=== PATIENT | male | born 1975 | race Hispanic/Latino ===

== ENCOUNTER 2019-01-06 13:56 | Outpatient (CLI) | payer OTHER ==
--- NOTE | 2019-01-06 15:19 | RAD ---
RADIOGRAPH CERVICAL SPINE 4 VIEWS: DATE: 01/06/2019 HISTORY: 43-year-old male with cervicalgia and cervical radiculopathy. COMPARISON: None TECHNIQUE: Lateral views in flexion, neutral, and extension. Swimmer's view. (No AP or open mouth view) FINDINGS: Alignment is normal. Vertebral body heights are maintained. At C5-6 and C6-7, there is minimal disc s pace narrowing and small endplate marginal osteophytes that encroach upon the anterior aspect of the spinal canal. There is no instability between flexion and extension. The rest of the discs spaces are maintained without osteophytes. No prevertebral soft tissue swelling. IMPRESSION: 1) mild to moderate degenerative disc disease at C5-6 and C6-7. 2) the rest of the levels are normal.
== END 2019-01-06 13:57 | disposition home or self-care (01) ==
LOC: TBSIIMAG 13:56
PROVIDERS: ATTEND Neurological Surgery
DX: M54.2 Cervicalgia (principal); M50.322 Other cervical disc degeneration at C5-C6 level
CPT/HCPCS: 72040

== ENCOUNTER 2019-02-24 05:58 | Day surgery (SDC) | payer OTHER ==
[2019-02-23 08:36] VITALS: BMI 27.2
--- NOTE | 2019-02-23 12:58 | HP ---
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 He was found on examination to have a C7 radiculopathy and his MRI scan showed the causative agent. This is a C6-C7 intervertebral disk herniation causing foraminal stenosis. Because of the failure of conservative management to alleviate his symptoms, we offered him a surgical intervention and he is here to proceed with that. PAST MEDICAL HISTORY: chronic pain, headache, and hypertension. PAST SURGICAL HISTORY: None. MEDICATIONS: 1. Montelukast sodium. 2. Fexofenadine. 3. EpiPen p.r.n. 4. Azelastine. 5. Losartan/hydrochlorothiazide. 6. Gemfibrozil. 7. Tizanidine p.r.n. 8. Tylenol No. 3 p.r.n. ALLERGIES: NO KNOWN DRUG ALLERGIES. SOCIAL HISTORY: Mr. Chopra is a member of [employer]. He is a former smoker. He is using no cigarettes currently. Does not use alcohol or illicit drugs. FAMILY HISTORY: Both of his parents are alive and healthy. PHYSICAL EXAMINATION: VITAL SIGNS: The patient is 5 feet 10 inches tall. He weighs 190 pounds. NEUROLOGIC: The patient is awake and alert. There are no cognitive deficits. Speech is fluent and without dysphasia. Cranial nerves: Normal. Motor examination: There is a weakness in the right triceps compared to the left as well as the right finger extensors. Sensory examination: There is decreased sensation in the C7 distribution on the right hand. There is a Tinel's at the elbow. IMAGING STUDIES: MR imaging of the cervical spine shows disk protrusions at C5- C6 and C6-C7. The right-sided neural foramen is more compressed at C6-C7. Flexion and extension views, no overt instability. IMPRESSION: 1. Cervical intervertebral disk disease. 2. C7 radiculopathy, right side. ASSESSMENT AND PLAN: I had a long discussion with Mr. Chopra about the management of the cervical disk disease. He had facet injections, epidural steroids, and he has been through Physical Therapy. He has had multiple rounds of oral medications and his weakness is obvious when he tries to do bench pressing. All of these factors let me to offer surgical intervention. I discussed two or one level anterior cervical discectomy and fusion and prefers to treat the symptomatic lesion. Informed Consent: I did discuss the indications, risks, benefits, alternatives , and expected outcomes from surgery. The risks we discussed included, but were not limited to, bleeding, infection, CSF leak, damage to the trachea, esophagus or vocal cords, dysphagia, spinal cord injury, wheelchair dependence, ventilator dependence, stroke, major blood vessel injury and anesthesia complications including . The long-term risks included the need for future surgery or hardware failure. Mr. Chopra wants to proceed with ACDF. We will take him to the operating room. Job ID: [id number] MTDD
[2019-02-24] MEDS ORDERED: Thrombin 5000 UNITS/5 ML VIAL ONE (06:12)
[2019-02-24] MEDS ORDERED: Sodium Chloride 0.9% 10 ML ONE (06:12)
[2019-02-24] MEDS ORDERED: Scopolamine 1.5 mg/72 hour Patch ONE (06:34)
[2019-02-24] MEDS ORDERED: Midazolam HCl 2 mg/2 ml Vial ONE (06:34)
[2019-02-24] MEDS ORDERED: Fentanyl 100 MCG/2 ML VIAL ONE ×3 (06:38→10:35)
[2019-02-24 06:45] LABS: INR-International Normal Ratio 0.8; Prothrombin Time 11.4 SEC (12.0-14.7)
[2019-02-24 06:55] LABS: Anion Gap 15 mmol/L (10-20); BUN (Urea Nitrogen) 9 mg/dL (8.9-20.6); Calc. Creatinine Clearance 128 mL/min (70-130); Calcium 9.6 mg/dL (7.8-10.44); Carbon Dioxide 25 mmol/L (22-29); Chloride 102 mmol/L (98-107); Estimated GFR-MDRD 90; Glucose 105 mg/dL (70-105); Potassium 4.1 mmol/L (3.5-5.1); Sodium 138 mmol/L (136-145)
[2019-02-24 07:13] LABS: Mean Corpuscular HGB CONC 34.2 g/dL (32.0-36.0); Mean Corpuscular Hemoglobin 28.2 pg (27.0-31.0); Mean Corpuscular Volume 82.6 fL (78.0-98.0); Platelet Count 264 thou/uL (130-400); Red Blood Cell (RBC) Count 5.49 mill/uL (4.70-6.10); White Blood Cell (WBC) Count 8.7 thou/uL (4.8-10.8)
[2019-02-24 07:16] LABS: #Basophils 0.1 thou/uL (0.0-0.2); #Eosinphils 0.4 thou/uL (0.0-0.7); #Monocytes 0.7 thou/uL (0.11-0.59); #Neutrophils 5.5 thou/uL (1.40-6.50); %Basophils 0.8 % (0.0-1.0); %Eosinophils 5.1 % (0.0-10.0); %Lymphocytes 22.5 % (21.0-51.0); %Monocytes 7.7 % (0.0-10.0)
[2019-02-24 07:18] LABS: Hemoglobin 15.5 g/dL (14.0-18.0)
[2019-02-24] MEDS ORDERED: PROPOFOL 20 ML ONE (09:27)
[2019-02-24] MEDS ORDERED: Morphine 4 MG/ML VIAL SLOW IVP PRN (09:54)
[2019-02-24] MEDS ORDERED: Morphine 2 MG/ML SYRINGE SLOW IVP PRN (09:54)
[2019-02-24] MEDS ORDERED: diphenhydrAMINE 50 MG/ML VIAL IVP PRN (09:54)
[2019-02-24] MEDS ORDERED: Promethazine HCl 12.5 MG SUPP PR PRN (09:54)
[2019-02-24] MEDS ORDERED: Ondansetron PF 4 MG/2 ML Vial IVP PRN (09:54)
[2019-02-24] MEDS ORDERED: tiZANidine HCl 4 MG TAB PO PRN (09:54)
[2019-02-24] MEDS ORDERED: diphenhydrAMINE 25 MG CAP PO PRN (09:54)
[2019-02-24] MEDS ORDERED: Promethazine HCl 25 MG/ML VIAL IM PRN (09:54)
[2019-02-24] MEDS ORDERED: Promethazine 25 MG TAB PO PRN (09:54)
[2019-02-24] MEDS ORDERED: Acetaminophen/Codeine 30-300mg Tablet PO PRN ×2 (09:54)
[2019-02-24] MEDS ORDERED: Acetaminophen 650 MG Suppository PR PRN (09:54)
[2019-02-24] MEDS ORDERED: Acetaminophen 325 MG TAB PO PRN (09:54)
[2019-02-24] MEDS ORDERED: Sodium Chloride 0.9% 1,000 ML IV SCH (10:00)
[2019-02-24] MEDS ORDERED: Scopolamine 1.5 mg/72 hour Patch TD SCH (10:00)
[2019-02-24] MEDS ORDERED: Dexamethasone 20 MG/5 ML VIAL ONE (10:07)
[2019-02-24] MEDS ORDERED: Rocuronium Bromide 10 MG/ML (10ML VIAL) ONE (10:07)
[2019-02-24] MEDS ORDERED: Ondansetron PF 4 MG/2 ML Vial ONE (10:07)
[2019-02-24] MEDS ORDERED: Glycopyrrolate 0.2 MG/ML 5 ML SYRINGE ONE (10:07)
[2019-02-24] MEDS ORDERED: ePHEDrine/0.9% NaCl/PF SYRINGE 50 mg/10 ml ONE (10:07)
[2019-02-24] MEDS ORDERED: Metoclopramide HCl 10 MG/2 ML VIAL ONE (10:07)
[2019-02-24] MEDS ORDERED: PHENYLEPHRINE-NS 100 MCG/ML 10 ML SYRINGE ONE (10:07)
[2019-02-24] MEDS ORDERED: Lidocaine 1% PF 5 ML VIAL ONE (10:07)
[2019-02-24] MEDS ORDERED: PROPOFOL 200 MG/20 ML VIAL ONE (10:07)
--- NOTE | 2019-02-24 10:26 | OP ---
DATE OF PROCEDURE: 02/24/2019 PIPELINE OPERATOR: None. PREOPERATIVE INDICATION: Treat pain and prevent neurological deterioration. PREOPERATIVE DIAGNOSIS: Cervical intervertebral disk disease at C5-C6 and C6-C7 with cord compression at C5-C6 and C7 radiculopathy at C6-C7. POSTOPERATIVE DIAGNOSIS: Cervical intervertebral disk disease at C5-C6 and C6-C7 with cord compression at C5-C6 and C7 radiculopathy at C6-C7. PROCEDURES PERFORMED: Anterior cervical diskectomy, intervertebral arthrodesis and placement of intervertebral biomechanical device at C5-C6 and C6-C7. Anterior cervical plating C5, C6, and C7. Local morselized autograft, morselized allograft, operating microscope. PREOPERATIVE MEDICATION: Ancef 2 g IV. DRAIN NUMBER: Zero. DRAIN TYPE: None. DESCRIPTION OF PROCEDURE: The patient was brought to the operating room. General endotracheal anesthesia was induced. The patient was carefully positioned on the operating table with his head supported by a donut-shaped headrest. A lateral fluoro radiograph was used to plan our incision. The right side of the neck was sterilely prepped and draped. We opened our planned incision with a 10-blade knife and controlled bleeding with bipolar cautery. We dissected sharply to the platysma, then we cut this muscle in line with our incision. We continued our dissection medial to the sternocleidomastoid and lateral to the trachea and esophagus. We arrived at the prevertebral space. We placed a marker at C4-C5 and took a lateral fluoro radiograph. From there, we counted down to the C5, C6, and C7 segments of the cervical spine. The longus colli muscles were elevated off these vertebrae and a self-retaining retractor was placed beneath them. Distraction pins were placed at C5 and C7 and we distracted across both of the intervening interspaces. We incised the interspaces with a 15-blade knife and removed disk contents using curettes and rongeurs. The operating microscope was brought in the field. Under microscopic magnification and using microsurgical techniques, we removed the remainder of the intervertebral disk. We accessed the ventral epidural space with a micro curette, and then using Kerrison rongeurs we removed posterior osteophytes and posterior longitudinal ligament across the entire interspace at C5-C6 and C6-C7 until the dura was decompressed from one nerve root all the way to the other. With our decompression secured, we turned our attention to arthrodesis. Using curettes, we prepared the endplates for grafting. A bone rasp was used to measure the height of each interspace. We measured C6-7 to 7 mm and C5-6 to 6 mm. The appropriately-sized PEEK intervertebral grafts were brought into the field. Osteophytes removed during our decompression were cleaned of soft tissue attachments, morcellized, and added into demineralized bone matrix to form a fusion substrate. The substrate was placed into the center of the PEEK grafts and those were advanced into the respective interspaces under radiographic guidance to the appropriate depth. We removed our distraction pins and took the operating microscope out of the field. A 28-mm anterior cervical plate was brought into the field. We drilled airline pilot flight instructor holes through the plate into the vertebral bodies at C5, C6, and C7. We affixed the plate using 14 mm screws. Fixed angle screws were used at C7 and variable angle screws at C5 and C6. We engaged the locking mechanism over each of the 6 screws. AP and lateral fluoro radiographs confirmed adequate positioning of our instrumentation. We irrigated copiously with bacitracin irrigation. We closed the wound in anatomical layers and we applied a sterile dressing. Clean case, no contamination. Job ID: [id number]
[2019-02-24] MEDS ORDERED: Tamsulosin HCl 0.4 MG CAP ONE (10:57)
--- NOTE | 2019-02-24 11:12 | EKG ---
Test Reason : PREOP Blood Pressure : / mmHG Vent. Rate : 070 BPM Atrial Rate : 070 BPM P-R Int : 134 ms QRS Dur : 092 ms QT Int : 440 ms P-R-T Axes : -04 047 013 degrees QTc Int : 475 ms Normal sinus rhythm Normal ECG No previous ECGs available Confirmed by DR. Hailey ALVARADO ([id number]) on 02/24/2019 11:11:49 AM Referred By: SIM Confirmed By:DR. Hailey ALVARADO
[2019-02-24] MEDS ORDERED: Acetaminophen/Codeine 30-300mg Tablet ONE (13:45)
[2019-02-24] MEDS ORDERED: CEFAZOLIN 2 GM in Premix Bag 1 BAG IVPB SCH (14:00)
[2019-02-24] MEDS ORDERED: Montelukast Sodium 10 mg Tablet PO SCH (21:00)
[2019-02-25] MEDS ORDERED: Tamsulosin HCl 0.4 MG CAP PO SCH (06:00)
[2019-02-25] MEDS ORDERED: Loratadine 10 MG TAB PO SCH (09:00)
[2019-02-25] MEDS ORDERED: Gemfibrozil 600 MG TAB PO SCH (09:00)
== END 2019-02-24 14:04 | disposition home or self-care (01) ==
LOC: SDC 05:58
PROVIDERS: ATTEND Neurological Surgery
PROC: 0RT30ZZ Resection of Cervical Vertebral Disc, Open Approach (ICD-10-PCS; principal; 2019-02-24)
PROC: 0RG2070 Fusion of 2 or more Cervical Vertebral Joints with Autologous Tissue Substitute, Anterior Approach, Anterior Column, Open Approach (ICD-10-PCS; principal; 2019-02-24)
PROC: 0RG20A0 Fusion of 2 or more Cervical Vertebral Joints with Interbody Fusion Device, Anterior Approach, Anterior Column, Open Approach (ICD-10-PCS; principal; 2019-02-24)
DX: M50.123 Cervical disc disorder at C6-C7 level with radiculopathy (principal); M48.02 Spinal stenosis, cervical region; I10 Essential (primary) hypertension; Z79.899 Other long term (current) drug therapy; Z87.891 Personal history of nicotine dependence
CPT/HCPCS: 36415; 76000; 80048; 85025; 85610; 85730; 93005; 93010; C1713; C1776; J0690; J1100; J2001; J2250; J2405; J2704; J2765; J3010; J3490; L0174

== ENCOUNTER 2019-04-09 09:28 | Outpatient (CLI) | payer OTHER ==
--- NOTE | 2019-04-09 11:28 | RAD ---
CERVICAL SPINE SERIES 4 VIEWS: HISTORY: Postop evaluation. COMPARISON: 01/06/2029 study. The patient has undergone internal cervical fusion with plate and plate and screws placed extending f rom C5 to C7. Marker of disk implants are within the intervening disk levels. IMPRESSION: Postoperative changes of the cervical spine. POS: [facility]PC
== END 2019-04-09 09:29 | disposition home or self-care (01) ==
LOC: TBSIIMAG 09:28
PROVIDERS: ATTEND Neurological Surgery
DX: M47.22 Other spondylosis with radiculopathy, cervical region (principal)
CPT/HCPCS: 72050